=== PATIENT | female | born 1995 | race Asian ===

== ENCOUNTER 2017-09-05 07:45 | Day surgery (SDC) | payer OTHER ==
[~2017-09-05] VITALS: Ht 154.9 cm; Wt 54.0 kg
[2017-09-05] MEDS ORDERED: LR 1,000 ML IV SCH (11:35)
[2017-09-05] MEDS ORDERED: MEPERIDINE HCL/PF 25 MG/ML DISP.SYRIN IVP PRN (11:45)
[2017-09-05] MEDS ORDERED: MORPHINE 4 MG/ML INJ. SYRINGE IVP PRN ×2 (11:45)
[2017-09-05] MEDS ORDERED: MORPHINE SULFATE 10 MG/ML VIAL IVP PRN (11:45)
[2017-09-05] MEDS ORDERED: BUPIVACAINE /PF 0.25% 30 ML VIAL INJ ONE (12:10)
[2017-09-05] MEDS ORDERED: MIDAZOLAM HCL 5 MG/ML VIAL (VERSED) IV ONE (12:10)
[2017-09-05] MEDS ORDERED: DEXAMETHASONE SOD PHOSPHATE 4 MG/ML VIAL ONE (12:10)
[2017-09-05] MEDS ORDERED: KETOROLAC TROMETHAMINE 30 MG VIAL ONE (12:10)
[2017-09-05] MEDS ORDERED: ROCURONIUM BROMIDE 10 MG/ML (ZEMURON) ONE (12:10)
[2017-09-05] MEDS ORDERED: NS IRRIG SOLN 1000 ML IR ONE (12:10)
[2017-09-05] MEDS ORDERED: PROPOFOL 200MG/ 20ML VIAL (DIPRIVAN) IV ONE (12:10)
[2017-09-05] MEDS ORDERED: ALFENTANIL HCL 1000 MCG/2 ML AMP ONE (12:10)
[2017-09-05] MEDS ORDERED: METOCLOPRAMIDE HCL 10 MG/2 ML VIAL ONE ×2 (12:10)
[2017-09-05] MEDS ORDERED: LR 1,000 ML IV.SOLN IV ONE (12:10)
[2017-09-05] MEDS ORDERED: SEVOFLURANE 15 MIN GAS INH ONE (12:10)
[2017-09-05 12:50] VITALS: BP_SYST 115
[2017-09-05] MEDS ORDERED: ONDANSETRON HCL 4 MG/2 ML VIAL IVP PRN (13:00)
[2017-09-05] MEDS ORDERED: IBUPROFEN 800 MG TABLET PO PRN (14:45)
[2017-09-05] MEDS ORDERED: OXYCODONE/ACETAMINOPHEN 5-325 TABLET PO PRN ×2 (14:45)
== END 2017-09-05 14:05 | disposition home or self-care (01) ==
LOC: SMU 07:45 → SDS 07:45
PROVIDERS: ATTEND Obstetrics & Gynecology
DX: D17.72 Benign lipomatous neoplasm of other genitourinary organ (principal); E28.2 Polycystic ovarian syndrome; E55.9 Vitamin D deficiency, unspecified; Z98.890 Other specified postprocedural states; Z80.3 Family history of malignant neoplasm of breast
CPT/HCPCS: 56620; 88304; J1100; J1885; J2250; J2704; J2765; J3490 ×2; J7120; 88305